=== PATIENT | male | born 1985 | race Caucasian/White ===

== ENCOUNTER 2016-09-19 23:02 | Emergency (ER) | payer SELFPAY ==
[~2016-09-19] VITALS: Ht 172.7 cm; Wt 77.1 kg
--- NOTE | 2016-09-19 23:02 | NUR ---
BIB [facility] TO ER OF1
--- NOTE | 2016-09-19 23:02 | NUR ---
Patient being evaluated by physician.
[2016-09-19 23:08] VITALS: BP 120/76
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
[2016-09-19 23:33] VITALS: BP 120/76
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
== END 2016-09-19 23:33 ==
LOC: MED 23:02
DX: Z02.89 Encounter for other administrative examinations (principal)
CPT/HCPCS: 99283